=== PATIENT | male | born 1985 | race Caucasian/White ===

== ENCOUNTER 2019-01-07 20:28 | Emergency (ER) | payer MEDICAID ==
[~2019-01-07] VITALS: Ht 172.7 cm; Wt 69.9 kg
[2019-01-07 20:32] VITALS: BP 119/76; Ht 172.7 cm; Wt 69.9 kg
== END 2019-01-07 22:04 | disposition home or self-care (01) ==
LOC: ED 20:28
DX: C40.01 Malignant neoplasm of scapula and long bones of right upper limb (principal); Z85.830 Personal history of malignant neoplasm of bone
CPT/HCPCS: J1885

== ENCOUNTER 2019-07-06 22:19 | Emergency (ER) | payer MEDICAID ==
[~2019-07-06] VITALS: Ht 172.7 cm; Wt 65.8 kg
[2019-07-06 22:22] VITALS: Ht 172.7 cm; Wt 65.8 kg
[2019-07-06 23:32] LABS: BASOPHIL % 0.2 % (0-2); PLATELET COUNT 226 x10^3mcL (130-400); RED CELL DISTRIBUTION WIDTH 12.7 % (11.5-14.5)
[2019-07-06 23:36] LABS: CALCIUM 8.9 mg/dL (8.5-10.1); CARBON DIOXIDE 29.5 mmol/L (21-32); CHLORIDE SERUM 105 mmol/L (98-107); CREATININE SERUM 1.3 mg/dL (0.7-1.3); GFR1 > 60 mL/min; GLUCOSE SERUM 91 mg/dL (74-106); POTASSIUM SERUM 4.1 mmol/L (3.5-5.1); SODIUM SERUM 145 mmol/L (136-145)
[2019-07-06 23:41] LABS: ALBUMIN 4.2 g/dL (3.4-5.0); ALKALINE PHOSPHATASE 65 U/L (46-116); ALT/SGPT 38 U/L (16-63); AST/SGOT 26 U/L (15-37); BILIRUBIN TOTAL 0.5 mg/dL (0.20-1.00); TOTAL PROTEIN, SERUM 7.5 g/dL (6.4-8.2)
[2019-07-07 02:50] VITALS: BP 107/72
[2019-07-07 03:44] LABS: AMPHETAMINE QUAL UR NONE DETECTED (See below)
== END 2019-07-07 03:12 | disposition home or self-care (01) ==
LOC: ED 22:19
PROVIDERS: Emergency Medicine
DX: F10.129 Alcohol abuse with intoxication, unspecified (principal); Z88.6 Allergy status to analgesic agent; Z88.5 Allergy status to narcotic agent; Z98.890 Other specified postprocedural states
CPT/HCPCS: G0480